=== PATIENT | female | born 1965 | race Caucasian/White ===

== ENCOUNTER → 2020-06-24 09:16 | Outpatient (CLI) | payer BC, SELFPAY ==
--- NOTE | ~2020-06-24 | XR_ITS ---
XR finger 3rd LT min 2V DATE: 06/24/2020 09:32 INDICATION: Left third digit pain TECHNIQUE: 4 views COMPARISON: None FINDINGS: No fracture or dislocation, periosteal reaction or bone destruction is evident. No radiopaq ue soft tissue foreign body or subcutaneous emphysema. IMPRESSION: No significant abnormality Reviewed, dictated and finalized at location A. IMPRESSION: No significant abnormality
== END ==
PROVIDERS: PCP Family Medicine; Visit Provider Family Medicine
DX: M79.645 Pain in left finger(s) (principal)
CPT/HCPCS: 73140

== ENCOUNTER → 2020-10-21 16:55 | Outpatient (REF) | payer BC, SELFPAY | LOC: ANHLAB 16:55 | PROVIDERS: PCP Family Medicine; Visit Provider Surgery Plastic and Reconstructive Surgery | DX: D23.61 Other benign neoplasm of skin of right upper limb, including shoulder (principal) | CPT/HCPCS: 88305 ==

== ENCOUNTER → 2021-01-18 04:25 | Outpatient (CLI) | payer BC, SELFPAY ==
[2021-01-18 19:03] LABS: SARS-CoV-2 RNA PCR Negative
== END ==
PROVIDERS: PCP Family Medicine; Visit Provider Internal Medicine Gastroenterology
DX: Z01.812 Encounter for preprocedural laboratory examination (principal); Z20.822 Contact with and (suspected) exposure to COVID-19
CPT/HCPCS: C9803; U0003; U0005

== ENCOUNTER 2021-01-21 02:07 | Day surgery (SDC) | payer BC, SELFPAY ==
[2021-01-04 14:20] VITALS: BMI 27.3
[2021-01-21 08:30] VITALS: BP 113/65; PULSE 63; RESP 18; TEMP 36.5; O2SAT 95
[2021-01-21] MEDS: LACTATED RINGERS 1,000 ML 150 ML IV CONT (08:50)
--- NOTE | 2021-01-21 09:08 | WPDANESEPPF ---
Anes - Initial Pre Proc Eval Procedure: Operation Date: 01/21/21 09:30 Proposed Procedures p Screening Colonoscopy - Patrick Banks MD Date/Time: 01/21/21 09:08 Surgeon: Patrick Banks MD Pre Op Diagnosis: neoplasm screening, hx of colon polyps Patient Data Age: 55 Gender: F Height: 5 ft 6 in Weight: 76.3 kg Last Vital Signs Temp 36.5 C 01/21/21 08:30 Pulse 63 01/21/21 08:30 Resp 18 01/21/21 08:30 BP 113/65 01/21/21 08:30 Pulse Ox 95 01/21/21 08:30 Allergies Allergy/AdvReac Type Severity Reaction Status Date / Time cat dander Allergy Unknown Unknown Verified 01/21/21 08:27 erythromycin base Allergy Unknown Unknown Verified 01/21/21 08:27 Sulfa (Sulfonamide Allergy Unknown Anemia Verified 01/21/21 08:27 Antibiotics) Home Medications Medication Instructions Recorded Confirmed Type diclofenac sodium 1 % gel topical 2 gm TOPICAL QID #3 each 06/24/20 01/04/21 Rx kit fluticasone propionate [Flonase 1 spray NASAL DAILY PRN 01/04/21 01/21/21 History Allergy Relief] Patient hx anesthesia problems: other (bp drop with epidural) Family hx anesthesia problems: none PMFSH Past Medical History Medical History Family history of Parkinson's disease Family history of prostate cancer Pulmonary nodule ct 2015 stable. no changes. Surgical History Surgical History History of wisdom tooth extraction Family History Family History Mother Family history of Parkinson's disease Family history of glaucoma Family history of cardiac disorder Family history of malignant neoplasm of kidney Father Malignant neoplasm of prostate Depression Hypertension Family history of elevated blood lipids Family history of cardiac disorder Social History Social History Smoking status: Former smoker (quit 1998) Smoking end date: 10/15/98 Alcohol intake: current Drinks per week: 6 Substance use type: does not use Living arrangements: with family Gender identity (if verbalized by the patient): Female Sexual Orientation (if Verbalized by the Patient): Straight or Heterosexual Spiritual care concerns: No Anes - Eval Final PreProcedure Day of Procedure 01/21/21 09:08 Patient weight: overweight Heart: regular rate and rhythm Lungs: clear to auscultation Airway: Mallampati scale class II Neurological: alert and oriented Last oral intake: >/= 8 hours ASA classification: II Emergent: no Anesthetic plan: proceed Anesthesia type and monitoring: general GIVS and standard monitoring Informed Consent: The patient's anesthetic plan and its attendant risks and benefits were discussed with the patient/family/POA. Questions were solicited and answers provided to the satisfaction of the patient/family/POA.
--- NOTE | 2021-01-21 09:25 | P.HP_ITS ---
History of Present Illness History of Present Illness Consent: Risks, benefits, and alternatives have been discussed and questions answered. Patient agrees to proceed with procedure. Chief complaint: neoplasm screening, hx of colon polyps Narrative: Diane Talbot is a 55 year old female referred for colon cancer screening Review of Systems Review of Systems: All systems reviewed & are unremarkable except as noted in HPI and below PMFSH Past Medical History Medical History Family history of Parkinson's disease Family history of prostate cancer Pulmonary nodule ct 2015 stable. no changes. Surgical History Surgical History History of wisdom tooth extraction Family History Family History Mother Family history of Parkinson's disease Family history of glaucoma Family history of cardiac disorder Family history of malignant neoplasm of kidney Father Malignant neoplasm of prostate Depression Hypertension Family history of elevated blood lipids Family history of cardiac disorder Social History Social History Smoking status: Former smoker (quit 1998) Smoking end date: 10/15/98 Alcohol intake: current Drinks per week: 6 Substance use type: does not use Living arrangements: with family Gender identity (if verbalized by the patient): Female Sexual Orientation (if Verbalized by the Patient): Straight or Heterosexual Spiritual care concerns: No Meds Home Medications and Allergies Home Medications Medication Instructions Recorded Confirmed Type diclofenac sodium 1 % gel topical 2 gm TOPICAL QID #3 each 06/24/20 01/04/21 Rx kit fluticasone propionate [Flonase 1 spray NASAL DAILY PRN 01/04/21 01/21/21 H istory Allergy Relief] Allergies Allergy/AdvReac Type Severity Reaction Status Date / Time cat dander Allergy Unknown Unknown Verified 01/21/21 08:27 erythromycin base Allergy Unknown Unknown Verified 01/21/21 08:27 Sulfa (Sulfonamide Allergy Unknown Anemia Verified 01/21/21 08:27 Antibiotics) Vital Signs Vital Signs - 24 hr 01/21/21 08:30 Temperature 36.5 C Pulse Rate 63 Respiratory Rate 18 Blood Pressure 113/65 Pulse Oximetry 95 Exam Resp: Auscultation: clear to auscultation bilaterally Cardio: Rate: regular rate Rhythm: regular rhythm GI: GI Palp: Yes Soft to palpation and No Tenderness to palpation present (GI) Assessment and Plan Assessment and plan (1) Colon cancer screening: Code(s): Z12.11 - Encounter for screening for malignant neoplasm of colon Status: Acute Assessment and Plan: Colonoscopy with possible biopsy or polypectomy or cautery or injection of substances.
[2021-01-21] MEDS: SIMETHICONE ORAL SUSPENSION 20 MG/0.3 ML 30 ML BOTTLE 0.6 ML IRRIGATION (09:32)
[2021-01-21 09:40] VITALS: BP 81/55; PULSE 74; RESP 20; O2SAT 95
[2021-01-21 09:50] VITALS: BP 120/60; PULSE 72; RESP 18; O2SAT 96
[2021-01-21 10:00] VITALS: BP 118/65; PULSE 68; RESP 16; O2SAT 96
== END 2021-01-21 10:14 | disposition home or self-care (01) ==
PROVIDERS: PCP Family Medicine; Visit Provider Internal Medicine Gastroenterology
PROC: 0DJD8ZZ Inspection of Lower Intestinal Tract, Via Natural or Artificial Opening Endoscopic (ICD-10-PCS; CPT 45378; principal; 2021-01-21 09:30)
DX: Z12.11 Encounter for screening for malignant neoplasm of colon (principal); Z87.891 Personal history of nicotine dependence; Z86.010 Personal history of colon polyps
CPT/HCPCS: 45378; J2704; J7120

== ENCOUNTER 2022-05-02 08:08 | Outpatient (CLI) | payer BC, SELFPAY ==
[2022-05-02 16:10] LABS: Appearance Urine Cloudy (Clear); Bilirubin Urine Negative (Negative); Blood Urine Trace-lysed (Negative); Color Urine Yellow (Yellow); Glucose Urine UA Negative (Negative); Ketones Urine Negative (Negative); Leukocyte Esterase Ur 2+ LEU/UL (Negative); Nitrate Urine Negative (Negative); Protein Urine Negative (Negative); Specific Grav Ur 1.015 (1.001-1.035); Urobilinogen Urine 0.2 mg/dL (<2.0)
[2022-05-02 16:20] LABS: Bacteria Urine Trace /hpf; Mucus Urine Rare /lpf; RBC Urine 0-2 /hpf (0-2); Squamous Epithelial Cell Urine Rare /hpf (Few); WBC Clumps Urine Present /HPF; WBC Urine >75 /hpf
[2022-05-02 16:35] LABS: Add Urine Microscopic? YES
== END 2022-05-02 08:09 | disposition home or self-care (01) ==
LOC: ANHGOSHLAB 08:10
PROVIDERS: PCP Family Medicine; Visit Provider Physician Assistant
DX: R30.0 Dysuria (principal)
CPT/HCPCS: 81001; 87077; 87086; 87186

== ENCOUNTER 2023-09-13 16:29 | Outpatient (NON) | payer BC, SELFPAY | END 2023-09-13 16:30 | disposition home or self-care (01) | LOC: ANHLAB 16:30 | PROVIDERS: PCP Family Medicine; Visit Provider Nurse Practitioner | DX: D22.71 Melanocytic nevi of right lower limb, including hip (principal) | CPT/HCPCS: 88305 ==

== ENCOUNTER 2023-12-05 07:32 | Outpatient (CLI) | payer BC, SELFPAY ==
--- NOTE | 2023-12-05 07:38 | EST_ITS ---
Patient Info Name: Diane Talbot Age: 58 years : 1965 Gender: Female Ht: 66 in Wt: 140 lbs BSA: 1.72 m2 HR: 58 bpm BP: 102 / 74 mmHg Exam Date: 12/05/2023 8:32 AM Exam Location: Echo Lab Patient Status: Outpatient Admit Date: 12/05/2023 Staff Ordering Physician: Mahsa High MD Attending Provider: Mahsa High MD Exercise Technologist: Claudia Marx [facility] Exercise Physician: Nikunj Obrien DO Exam Type: CA stress test treadmill Study Info A treadmill exercise stress test was performed. Summary 1. 1. Negative Ben exercise stress test for ischemic ST changes by ECG criteria. 2. 2. Good functional capacity, achieving 10 METs of workload. 3. 3. Appropriate HR response to exercise. 4. 4. Appropriate HR recovery at 1 minute post exercise. 5. 5. No imaging with stress testing. 6. 6. Patient informed of the above results. Protocol: Ben Stress ECG Details Stage: REST Duration (min): 1 min : 9 sec Speed (mph): 0.0 Grade (%): 0 HR (bpm): 59 SBP (mmHg): 117 DBP (mmHg): 74 METS: --- Stage: REST Duration (min): 2 min : 45 sec Speed (mph): 0.0 Grade (%): 0 HR (bpm): 58 SBP (mmHg): 102 DBP (mmHg): 74 METS: --- Stage: REST Duration (min): 10 min : 4 sec Speed (mph): 0.0 Grade (%): 0 HR (bpm): 86 SBP (mmHg): 102 DBP (mmHg): 74 METS: --- Stage: STAGE 1 Duration (min): 1 min : 0 sec Speed (mph): 1.7 Grade (%): 10 HR (bpm): 92 SBP (mmHg): 102 DBP (mmHg): 74 METS: --- Stage: STAGE 1 Duration (min): 2 min : 0 sec Speed (mph): 1.7 Grade (%): 10 HR (bpm): 111 SBP (mmHg): 102 DBP (mmHg): 74 METS: --- Stage: STAGE 1 Duration (min): 3 min : 0 sec Speed (mph): 1.7 Grade (%): 10 HR (bpm): 99 SBP (mmHg): 107 DBP (mmHg): 70 METS: --- Stage: STAGE 2 Duration (min): 1 min : 0 sec Speed (mph): 2.5 Grade (%): 12 HR (bpm): 116 SBP (mmHg): 107 DBP (mmHg): 70 METS: --- Stage: STAGE 2 Duration (min): 2 min : 0 sec Speed (mph): 2.5 Grade (%): 12 HR (bpm): 123 SBP (mmHg): 127 DBP (mmHg): 71 METS: --- Stage: STAGE 2 Duration (min): 3 min : 0 sec Speed (mph): 2.5 Grade (%): 12 HR (bpm): 123 SBP (mmHg): 127 DBP (mmHg): 71 METS: --- Stage: STAGE 3 Duration (min): 1 min : 0 sec Speed (mph): 3.4 Grade (%): 14 HR (bpm): 137 SBP (mmHg): 127 DBP (mmHg): 71 METS: --- Stage: STAGE 3 Duration (min): 2 min : 0 sec Speed (mph): 3.4 Grade (%): 14 HR (bpm): 146 SBP (mmHg): 127 DBP (mmHg): 71 METS: --- Stage: STAGE 3 Duration (min): 2 min : 0 sec Speed (mph): 3.4 Grade (%): 14 HR (bpm): 146 SBP (mmHg): 127 DBP (mmHg): 71 METS: --- Stage: RECOVERY Duration (min): 0 min : 59 sec Speed (mph): 0.0 Grade (%): 0 HR (bpm): 94 SBP (mmHg): 127 DBP (mmHg): 71 METS: --- Stage: RECOVERY
--- NOTE | 2023-12-05 07:39 | ECHO_ITS ---
Patient Info Name: Diane Talbot Age: 58 years : 1965 Gender: Female Ht: 66 in Wt: 141 lbs BSA: 1.73 m2 HR: 55 bpm BP: 102 / 73 mmHg Heart Rhythm: Sinus Rhythm Technical Quality: Good Exam Date: 12/05/2023 7:49 AM Exam Location: Echo Lab Patient Status: Outpatient Admit Date: 12/05/2023 Staff Ordering Physician: Mahsa High MD Electric Power Line Repairer: Attending Provider: Mahsa High MD Referring Physician: Anila RICHARDSON; Exam Type: CA echo doppler color flow Study Info Indications R55 - Syncope and collapse Complete two-dimensional, color flow and Doppler transthoracic echocardiogram is performed. Summary 1. Complete two-dimensional, color flow and Doppler transthoracic echocardiogram is performed. 2. Left ventricular chamber dimension is normal. 3. Left ventricular systolic function is normal, estimated at 60-65%. 4. There is no increased left ventricular wall thickness. 5. The left ventricular diastolic function is normal. 6. Right atrial chamber dimension is mildly enlarged. 7. There is trace mitral valve regurgitation. There is straightening of the mitral valve leaflets without mitral valve prolapse. 8. There is mild tricuspid valve regurgitation. 9. No pulmonary hypertension, estimated pulmonary arterial systolic pressure is 27 mmHg. Left Ventricle Left ventricular chamber dimension is normal. Left ventricular systolic function is normal, estimated at 60-65%. There is no increased left ventricular wall thickness. The left ventricular diastolic function is normal. Right Ventricle Right ventricular chamber dimension is normal. Right ventricular systolic function is normal. Left Atria Left atrial chamber dimension is normal. Right Atria Right atrial chamber dimension is mildly enlarged. Aortic Valve The aortic valve is trileaflet. There is mild aortic valve sclerosis. There is no aortic valve stenosis. There is no aortic valve regurgitation. Pulmonic Valve The pulmonic valve is not well visualized. There is trace pulmonic regurgitation. Mitral Valve The mitral valve has normal leaflets. There is trace mitral valve regurgitation. There is straightening of the mitral valve leaflets without mitral valve prolapse. Tricuspid Valve The tricuspid valve leaflets are normal. There is mild tricuspid valve regurgitation. No pulmonary hypertension, estimated pulmonary arterial systolic pressure is 27 mmHg. Pericardium/Pleural The pericardium appears normal. There is trivial pericardial effusion. Inferior Vena Cava Normal inferior vena cava with >50% collapse upon inspiration consistent with normal right atrial pressure, 5 mmHg. Aorta The aortic root size at the sinus of Valsalva is normal. The prox ascending aorta size is normal. Left Ventricular Outflow Tract Name Value Normal LVOT 2D LVOT Diameter 2.0 cm LVOT Doppler LVOT Peak Gradient 3 mmHg LVOT Mean Gradient 2 mmHg LVOT VTI 23 cm LVOT VTI/AV VTI Ratio 0.7 LVOT Stroke Volume 76 ml LVOT CO 4.1 l/min
== END 2023-12-05 07:33 | disposition home or self-care (01) ==
LOC: ANHCARD 07:33
PROVIDERS: PCP Family Medicine; Visit Provider Family Medicine
DX: I34.0 Nonrheumatic mitral (valve) insufficiency (principal); I07.1 Rheumatic tricuspid insufficiency
CPT/HCPCS: 93017; 93306

== ENCOUNTER 2024-12-04 10:02 | Outpatient (RCR) | payer BC, SELFPAY ==
--- NOTE | 2024-12-04 10:50 | OPREHPOC ---
Outpatient Therapy Plan of Care This is a Multidisciplinary Plan of Care that may contain components documented by all disciplines (PT, OT, and ST.) PT Problem 1 PT Problem #1 Knowledge Deficit PT Goal 1 Goal / Goal Update 1. Patient will perform independent HEP 2. Patient will verbalize urge suppression strategies Target Visit 2 PT Problem 2 PT Problem #2 Impaired Functional ADLs PT Goal 1 Goal / Goal Update 1. Patient will report incontinence no more than 1 time a week 2. Patient able to hold urge to void up to 30 minutes Target Visit 6 PT Problem 3 PT Problem #3 Impaired Strength PT Goal 1 Goal / Goal Update 1. Improve pelvic floor strength to 3/5 to reduce incontinence 2. Improve pelvic floor endurance to 10 seconds to reduce incontinence Target Visit 6
--- NOTE | 2024-12-04 10:50 | PTOPEVAL1 ---
Assessment and note entered by Tamara Carrillo DPT Evaluation Information Assessment Status Evaluation Diagnosis n32.82 ICD-10 Condition Codes (PT) Stress incontinence N39.3 Subjective Information Pt reports urinary urgency and will get incontinence as well. Gets incontinence 1-2 times a day. Occurs with urge as well as cough/sneeze. Volume is typically small but has had to change her clothes because of it. Wears pads at night. Voids 8 times a day, 1 time at night. Cannot hold urge to void at all. Urgency has been going on for years but is worsening. No pain with urination. BM 1 time a day, no pain or fecal incontinence. No previous pelvic pain. Pt has been 2 times, 2 vaginal deliveries with minor tear with first. Bladder sling 20 years ago which was recently checked and is where it should be . No b /b issues. Patient reports she still does her typical activities but does always have to know where the bathroom is. Able to still travel but with frequent bathroom breaks. Patient goal: decrease the urgency and be able to hold for longer Return to MD is not scheduled. Has seen urology in the past. Reported Pain Level Pain Score 0: Self Report Assessment PT Clinical Summary The patient is presenting to skilled therapy with mixed urinary incontinence. She presents with significantly decreased pelvic floor strength and endurance as well as decreased hip and abdominal strength. These impairments are contributing to her daily incontinence and inability to hold urge to void more than 1 minute. She will benefit from skilled therapy in order to reduce incontinence and urgency in order to restore full function. Plan of Care Interventions Manual Therapy,Neuro Re-education,Patient/ Caregiver Education,Therapeutic Activities, Therapeutic Exercise PT Services Indicated Yes Treatment Frequency and 2-4 visits a month x 6 visits total Duration These treatments will address the objective and functional deficits as defined above. The patient will be advanced safely and appropriately in order for the patient to progress towards his/her prior level of function. Additional exercises will be introduced and as well as a comprehensive home exercise program upon discharge, if needed, ?to ensure carryover of functional gains achieved in the clinic. This treatment plan has been reviewed and agreement upon by the patient.
--- NOTE | 2025-02-12 08:23 | PTOPDC ---
Assessment and note entered by Tamara Carrillo DPT Evaluation Information Assessment Status Discharge - Pt Not Present Diagnosis n32.82 ICD-10 Condition Codes (PT) Stress incontinence N39.3 Subjective Information - Assessment PT Clinical Summary Patient has not attended therapy since initial evaluation 12/04/24. Her case will be discharged this date. Plan of Care PT Services Indicated No
== END 2025-02-12 09:52 | disposition home or self-care (01) ==
LOC: ANHGOSHPT 10:02
PROVIDERS: PCP Family Medicine; Visit Provider Family Medicine
DX: N32.89 Other specified disorders of bladder (principal); N39.3 Stress incontinence (female) (male)
CPT/HCPCS: 97112; 97161